=== PATIENT | female | born 1985 | race African-American/Black ===

== ENCOUNTER 2018-10-06 05:35 | Inpatient (IN) ==
[2018-10-06 06:26] LABS: Basophils % 0.8 % (0.0-0.8); Eosinophils # 0.1 10*3/uL (0.0-0.87); Eosinophils % 3.4 % (0.00-10.9); Hematocrit 34.9 VOL% (35.7-47.0); Hemoglobin 11.3 GM/DL (12.0-16.0); Immature Granulocytes % 0.3 %; Immature Granulocytes Absolute 0.01 #; Lymphocytes # 1.6 10*3/uL (1.4-4.0); Lymphocytes % 41.4 % (21.3-54.2); Mean Corpuscular HGB Conc 32.4 GM/DL (32-36); Mean Corpuscular Hemoglobin 32 PG (27-34); Mean Corpuscular Volume 98.9 FL (87-102); Mean Platelet Volume 9.6 FL (9.6-12.0); Monocytes # 0.3 10*3/uL (0.11-0.8); Monocytes % 8.4 % (1.7-12.7); Neutrophils # 1.8 10*3/uL (1.4-7.4); Neutrophils % 45.7 % (38.7-73.9); Platelet Count 237 T/CUMM (130-400); Red Blood Count 3.53 MC/CUMM (3.8-5.5); Red Cell Distribution Width 11.5 % (9.3-17.3); White Blood Count 3.8 T/CUMM (4-12)
[2018-10-06] MEDS ORDERED: cefOXitin 2,000 MG in SYRINGE 1 EACH IV ONE (08:00)
[2018-10-06] MEDS ORDERED: DIAZEPAM 5 MG TABLET PO ONE (08:34)
[2018-10-06] MEDS ORDERED: DIAZEPAM 5 MG TABLET ONE (08:37)
[2018-10-06] MEDS: LACTATED RINGERS 1,000 ML IV SCH ×2 (09:15→20:38)
[2018-10-06] MEDS ORDERED: LIDOCAINE 1% 20 ML VIAL ONE (11:45)
[2018-10-06] MEDS ORDERED: TISSUE ADHESIVE 1 EACH APPLICATOR TOP ONE (12:28)
[2018-10-06] MEDS ORDERED: PROPOFOL 200 MG/20 ML VIAL IV ONE (14:03)
[2018-10-06] MEDS ORDERED: SEVOFLURANE 1 UNIT/15 MINUTE INH ONE (14:03)
[2018-10-06] MEDS ORDERED: MIDAZOLAM 2 MG/2 ML VIAL ONE (14:04)
[2018-10-06] MEDS ORDERED: ROCURONIUM 100 MG/10 ML VIAL IV ONE (14:04)
[2018-10-06] MEDS ORDERED: NEOSTIGMINE 10 MG/10 ML VIAL ONE (14:04)
[2018-10-06] MEDS ORDERED: fentaNYL 100 MCG/2 ML VIAL ONE (14:04)
[2018-10-06] MEDS ORDERED: ONDANSETRON 4 MG/2 ML VIAL ONE (14:04)
[2018-10-06] MEDS ORDERED: GLYCOPYRROLATE 0.4 MG/2 ML VIAL ONE (14:04)
[2018-10-06] MEDS ORDERED: MINERAL OIL/PETROLATUM OPH OINT 3.5 GM TUBE ONE (14:04)
[2018-10-06] MEDS ORDERED: BENZOCAINE/MENTHOL LOZENGE 18/BOX PO PRN (14:30)
[2018-10-06] MEDS ORDERED: MAGNESIUM HYDROXIDE SUSP 30 ML UDCUP PO PRN (14:30)
[2018-10-06] MEDS ORDERED: BISACODYL 10 MG SUPP RECTAL PRN (14:30)
[2018-10-06] MEDS ORDERED: ONDANSETRON 4 MG/2 ML VIAL IV PRN (14:30)
[2018-10-06 14:43] LABS: Apearance,Urine CLEAR (Clear); Bilirubin,Urine Negative (Negative); Blood, Urine Negative (Negative); Glucose,Urine (UA) Negative (Negative); Ketones,Urine Negative (Negative); Nitrite,Urine Negative (Negative); Protein,Urine Negative; RBC,Urine 1 /HPF (0-4); Squamous Epithelial Cell,Urine Occasional /HPF (0-10); Urine Color Straw (Yellow); Urine Specific Gravity 1.008 (1.001-1.035); Urine Urobilinogen < 2.0 EU/DL (0.2-1.0); WBC,Urine <1 /HPF (0-6)
[2018-10-06] MEDS: KETOROLAC 30 MG/1 ML VIAL IV SCH (14:59)
[2018-10-06] MEDS: ceFAZolin 1,000 MG in SYRINGE 1 EACH IV SCH (20:35)
[2018-10-07] MEDS: KETOROLAC 30 MG/1 ML VIAL IV SCH ×2 (03:13→09:22)
[2018-10-07] MEDS: ceFAZolin 1,000 MG in SYRINGE 1 EACH IV SCH (04:17)
[2018-10-07 05:13] LABS: Basophils % 0.2 % (0.0-0.8); Eosinophils % 0.2 % (0.00-10.9); Hemoglobin 9.8 GM/DL (12.0-16.0); Immature Granulocytes % 0.4 %; Immature Granulocytes Absolute 0.04 #; Lymphocytes # 1.8 10*3/uL (1.4-4.0); Lymphocytes % 16.2 % (21.3-54.2); Mean Corpuscular HGB Conc 32.7 GM/DL (32-36); Mean Corpuscular Hemoglobin 31 PG (27-34); Mean Corpuscular Volume 95.8 FL (87-102); Mean Platelet Volume 10.1 FL (9.6-12.0); Monocytes # 0.7 10*3/uL (0.11-0.8); Monocytes % 6.1 % (1.7-12.7); Neutrophils # 8.6 10*3/uL (1.4-7.4); Neutrophils % 76.9 % (38.7-73.9); Platelet Count 219 T/CUMM (130-400); Red Blood Count 3.13 MC/CUMM (3.8-5.5); Red Cell Distribution Width 11.3 % (9.3-17.3); White Blood Count 11.2 T/CUMM (4-12)
[2018-10-07] MEDS ORDERED: SIMETHICONE CHEW 80 MG TABLET PO PRN (09:07)
[2018-10-07] MEDS: DOCUSATE SODIUM 100 MG CAPSULE PO SCH ×2 (09:16→21:52)
[2018-10-07] MEDS: IBUPROFEN 800 MG TABLET PO SCH ×2 (15:18→22:27)
[2018-10-08] MEDS: IBUPROFEN 800 MG TABLET PO SCH (06:51)
[2018-10-08 07:36] VITALS: BP 102/75
[2018-10-08] MEDS: DOCUSATE SODIUM 100 MG CAPSULE PO SCH (09:15)
== END 2018-10-08 09:25 | disposition home or self-care (01) | DRG 519 ==
LOC: N.OR 05:35 → N.SDSINP 05:36 → N.OB 14:29
PROVIDERS: ADMIT Obstetrics & Gynecology; ATTEND Obstetrics & Gynecology